=== PATIENT | female | born 1980 | race Two or more races ===

== ENCOUNTER 2022-01-16 06:00 | Day surgery (SDC) | payer OTHER ==
[~2022-01-16] VITALS: Ht 165.1 cm; Wt 59.0 kg
== END 2022-01-16 10:40 | disposition home or self-care (01) ==
LOC: CIR.AMB 06:00
PROVIDERS: ATTEND Specialist
DX: O02.1 Missed abortion (principal); Z20.822 Contact with and (suspected) exposure to COVID-19

== ENCOUNTER 2022-03-13 06:46 | Day surgery (SDC) | payer OTHER ==
[~2022-03-13] VITALS: Ht 165.1 cm; Wt 59.0 kg
[~2022-03-13 06:46] MED LIST: SYNTHROID75 MCG
== END 2022-03-13 18:25 | disposition home or self-care (01) ==
LOC: CIR.AMB 06:46
PROVIDERS: ATTEND Surgery
DX: N60.32 Fibrosclerosis of left breast (principal); N60.02 Solitary cyst of left breast; Z88.8 Allergy status to other drugs, medicaments and biological substances; E03.9 Hypothyroidism, unspecified; Z87.891 Personal history of nicotine dependence
CPT/HCPCS: 19301; 19281; L8699